=== PATIENT | male | born 1955 | race Caucasian/White ===

== ENCOUNTER 2021-04-12 10:50 | Emergency (ER) | payer MEDICAID ==
[~2021-04-12] VITALS: Ht 157.5 cm; Wt 54.0 kg
[~2021-04-12 10:50] MED LIST: ALBU1.252 IH; ALBU8.5H8 IH; BECL8.7A5 IH; CALC-895 PO; FLUT16H NASAL; IPRA0.2S54 IH; MORP30CP13 PO; PRED-409 PO; PROM-163 PO
[2021-04-12 11:32] VITALS: BP 102/67
== END 2021-04-12 12:01 | disposition home or self-care (01) ==
LOC: EMS 11:06
DX: U07.1 COVID-19 (principal); Z88.8 Allergy status to other drugs, medicaments and biological substances; Z79.899 Other long term (current) drug therapy
CPT/HCPCS: 99283; C9803; U0003

== ENCOUNTER 2021-04-14 08:15 | Day surgery (SDC) | payer MEDICAID ==
[~2021-04-14] VITALS: Ht 157.5 cm; Wt 54.5 kg
[~2021-04-14 08:15] MED LIST changes: -PRED-409 PO; +PRED-549 PO
[2021-04-14] MEDS ORDERED: LIDOCAINE/PF 2% 5 ML VIAL IM ONE (08:16)
[2021-04-14] MEDS ORDERED: PROPOFOL 1% 20 ML VIAL IVP ONE (08:16)
[2021-04-14] MEDS ORDERED: SODIUM CHLORIDE 0.9% 1,000 ML IV ONE (08:30)
[2021-04-14 08:56] LABS: COVID AG,FIA SOURCE NASAL SWAB
[2021-04-14] MEDS ORDERED: SODIUM CHLORIDE 0.9% 1,000 ML ONE (09:16)
[2021-04-14] MEDS ORDERED: OXYGEN THERAPY IH SCH (20:00)
== END 2021-04-14 12:35 | disposition home or self-care (01) ==
LOC: SURGERY 08:15
PROVIDERS: ATTEND Specialist
DX: R10.9 Unspecified abdominal pain (principal); D12.2 Benign neoplasm of ascending colon; D12.5 Benign neoplasm of sigmoid colon; E11.9 Type 2 diabetes mellitus without complications; J44.9 Chronic obstructive pulmonary disease, unspecified; Z20.822 Contact with and (suspected) exposure to COVID-19; Z79.899 Other long term (current) drug therapy; Z88.8 Allergy status to other drugs, medicaments and biological substances; Z90.49 Acquired absence of other specified parts of digestive tract; Z98.890 Other specified postprocedural states
CPT/HCPCS: 45380; 45385; 87426; 88305; C1769; C9803; J2704; J3490; J7030